=== PATIENT | female | born 1995 | race Caucasian/White ===

== ENCOUNTER 2016-09-03 09:00 | Outpatient (RCR) | payer OTHER, SELFPAY ==
--- NOTE | 2016-09-03 12:38 | BH.SGPN_ITS ---
Service Group Progress Note - Session Psychotherapy Session #1 Date Open:: 09/03/16 Time Started:: 09:10 Time Stopped:: 10:10 Targeted Problem #:: 1 Type of Group:: Process - 7 Participants Goal of Group:: The goal of today's group was to check-in with client's mood, stressors, and positives, review homework, and to introduce the topic of the day. Client Response/Progress/Benefit:: Client entered session alert and attentive. Client was quiet throughout group but continued to actively listen to peers. Client stated she, ?hermitted Saturday and Saturday, but I wanted to be a functioning adult on Saturday and went out.? Client spoke about how her original plans fell through but didn?t get discouraged and continued on with other plans. Client reported feeling, ?tired,? but benefitted from group by venting frustrations. Progress noted in client?s ability to not get discouraged and limit isolation. Continued treatment necessary to decrease depressive symptoms and reduce isolation. Eye Contact:: Fair Motor Activity:: Appropriate Appearance:: Casual Speech:: Appropriate Mood:: Euthymic Affect:: Full Thoughts:: Linear, Logical, No evidence of hallucinations/delusions noted Staff Interventions:: Therapist used open-ended questions to elicit information about client's current stressors and mood. Therapist was supportive by using active listening and reflection. Therapist utilized a quote as an aid in introducing the topic of the day.
--- NOTE | 2016-09-03 15:40 | BH.SGPN ---
Service Group Progress Note - Session Psychotherapy Session #2 Date Open:: 09/03/16 Time Started:: 10:20 Time Stopped:: 11:10 Targeted Problem #:: 1 Type of Group:: Illness Management Goal of Group:: To increase understanding of communication and the various types of communication. Another goal was to identify the costs and benefits of each style of communication. Client Response/Progress/Benefit:: Client responded well to session as shown by her contributing her thoughts and ideas to discussion and connecting with others. Client connected with several of the different communication styles, able to identify both positives and negatives of the styles. Client seemed to benefit from increasing awareness of the different styles of communication and how each style can impact relatinshiops and mental health. Eye Contact:: Good Motor Activity:: Appropriate Appearance:: Casual Speech:: Appropriate Mood:: Anxious Affect:: Congruent Thoughts:: Linear, Logical, No evidence of hallucinations/delusions noted Staff Interventions:: Therapist facilitated the group discussion about communication and explained the different types of communication. Therapist assisted group members in identifying the impact the communication style has on their relationships. Therapist provided support by using active listening and providing feedback. Psychotherapy Session #3 Date Open:: 09/03/16 Time Started:: 11:30 Time Stopped:: 12:15 Targeted Problem #:: 1 Type of Group:: Functional Skills Development Goal of Group:: To identify increase understanding of impact of own communication style can have on relationships and mental health. Another goal was to identify strategies to improve communication. Client Response/Progress/Benefit:: Client attentive, active participant, positive contributions. Client identifed she will attempt to be assertive, but often gets passive aggressive when she believes the other person is not listening or understanding what she is attempting to communicate. Client reported when she gets passive aggressive it doesn't often help the situation, sometimes results in her isolating, increasing depressive symptoms. She seemed to benefit from increased awareness of impact personal style of communication has on her as well as group brainstorming strategies to help increase effective communication. Eye Contact:: Good Motor Activity:: Appropriate Appearance:: Casual Speech:: Appropriate Mood:: Anxious Affect:: Congruent Thoughts:: Linear, Logical, No evidence of hallucinations/delusions noted Staff Interventions:: Therapist elicited which communication style each group member most often uses and how that communication style impacts their relationships and mental health. Therapist brainstormed with group members to identify strategies that can help improve personal communication. Therapist provided support by using active listening and feedback.
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
--- NOTE | 2016-09-05 11:51 | BH.SGPN ---
Service Group Progress Note - Session Psychotherapy Session #1 Date Open:: 09/05/16 Time Started:: 09:00 Time Stopped:: 10:00 Type of Group:: Process - 8 group members Goal of Group:: The goal of today's group was to check-in with clients, review homework from previous group session and introduce todays topic. Client Response/Progress/Benefit:: Attentive. Provided feedback when prompted however was superficial. Emotion for today was tired. Reports poor sleep. Distant and depressed. Briefly discussed stressors however smiled and stated something like this is just my life while smiling. Often smiles when significantly depressed or overwhelmed. Attempted to elicit more information however pt appeared irritable. Limited progress noted. Depression and irritable and not utilizing group to process emotions. Continues to isolate at home often sleeping when not in IOP. Continued treatment to maintain safety, improve functioning to return to work, and prevent decompensation. Eye Contact:: Fair Motor Activity:: Restless Appearance:: Casual Speech:: Pressured Mood:: Anxious, Irritable, Depressed Affect:: Congruent Thoughts:: Linear, Logical, No evidence of hallucinations/delusions noted Staff Interventions:: Therapist inquired about each group members previous night and current mood state. Therapist reviewed the group members homework from previous group session with the group, asking open ended questions to get more information.
--- NOTE | 2016-09-05 15:06 | BH.MDN_ITS ---
Multi-Disciplinary Note - Note 45-min Individual Time Started:: 12:15 Date: 09/05/16 Purpose of session/treatment goals addressed:: Review progress in [facility] and in regards to treatment plan goals. Reviewed treatment goals 1 and 2. Dicussed discharge from [facility] level of care and step-down to [facility] level of care. Eye Contact:: Good Motor Activity:: Appropriate Appearance:: Casual Speech:: Appropriate Mood:: Euthymic Affect:: Full Thoughts:: Linear, Logical, No evidence of hallucinations/delusions noted Staff Interventions:: Reviewed each treatment goal with pt to gauge her progress. Faciliated a dsicussion on progress in [facility] and recommendations for step-down to [facility] Client Response:: Pt reviewed her crisis plan with therapist. Worked with therapist to complete certain sections. Showed insight into how to use a safety plan as well as when to reach out to crisis and ER if unable to manage symptoms by herself. Identified several warning signs to depression and anxiety as well as negative self-talk statements. Pt was optimistic and motivated today. She reports that she is going to buy a journal this afternoon with plan to record her thoughts and emotions daily in an effort to increase her awareness of cognitive distortions and improve her thought changing skills. Discussed some coping skills that have been most helpful for her which include breathing skills , thought stopping, reframing, using support, and external distractions. She reports that she is less depressed and anxious since starting [facility] Reports that SI has decreased and she feels confident in her ability to maintain her safety. Continues to isolate and ruminate. Agreeable to step down to [facility] as she has met all treamtent plan goals. Risks/Concerns:: No conerns noted. Denies active SI,PLAN, OR INTENT. Contracts for safety. Future-oriented. Progress Toward Goals/Plan:: Completed treatment plan goals. Completed and reviewed crisis and safety plan with therapist today. Pt was able to identify several negative self-talk statements (I'm a failure, I'm doomed to feel depressed all the time) as well as ways to replace negative thoughts with more realistic thoughts. Was able to identify mistaken beliefs and cognitive distortions (all or nothing thinking, Should/must statements). Was able to give example of ways to reframe negative thoughts. Is going to start a journal which involves her thought patterns. Also was able to identify warning signs and strategies to mange her anxiety. Progress noted as she reports decreased suicidal ideations. Reports that SI can occur however decreased intensity and frequency. Feels that she is able to manage these thoughts currently. More optimistic. No reported panic attack since last week. Continues to ruminate and isolate at times due to depression. At this point she will be discharged from [facility] level of care. Plan is to start IOP on 09/07/16 Time Stopped:: 13:00
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
--- NOTE | 2016-09-05 17:59 | BH.SGPN ---
Service Group Progress Note - Session Psychotherapy Session #2 Date Open:: 09/05/16 Time Started:: 10:10 Time Stopped:: 11:03 Targeted Problem #:: 1 Type of Group:: Illness Management - 8 participants. Goal of Group:: To increase understanding of cognitive distortions, identify examples of when have had unhelpful thinking, and increase awareness of the impact cognitive distortions have on mental health. Client Response/Progress/Benefit:: Client was a positive participant and well engaged throughout. She did well to openly express thoughts and opinions, as well as challenge various items she did not connect with. Client reflected upon the day's quote, indicating that her experiences with anxiety have caused her mind to invent, create, experience, or distroy things based upon her ruminating thoughts alone. She did well to actively provide feedback during the discussion on cognitive distortions and often challenged some of these definitions. Client identified that she often falls into assuming, disqualifying the positive, or catastrophising which tends to increase symptoms of anxiety and depression. During the exercise portion, Client worked well within the small group setting to creat a barrier for the egg, representing the way distorted thoughts protect and precipitate negative emotions. Client appeared to benefit from engaging in discussion and reflecting upon the definitions for each cognitive distortion. Eye Contact:: Good Motor Activity:: Appropriate Appearance:: Casual Speech:: Appropriate Mood:: Euthymic Affect:: Congruent Thoughts:: Linear, Logical, No evidence of hallucinations/delusions noted Staff Interventions:: Therapist utilized a quote as a tool to introduce topic of the day. Therapist provided group members with a handout that listed ten cognitive distortions with examples. Therapist facilitated group discussion about cognitive distortions. Therapist led group members in an activity to help them understand the impact cognitive distortions can have on emotions and behavior. Therapist provided support by using active listening and providing feedback. Psychotherapy Session #3 Date Open:: 09/05/16 Time Started:: 11:08 Time Stopped:: 11:58 Targeted Problem #:: 1 Type of Group:: Functional Skills Development - 8 participants. Goal of Group:: To identify ways of defeating cognitive distortions and rehearse defeating the identified cognitive distortion. Client Response/Progress/Benefit:: Client again did well to actively participate and engage in the group session. She was able to connect a drop activity with the importance of not only having awareness of one's cognitive distortions but also actively putting effort into challenging negative thought patterns. Client indicated skepticism in her ability to challenge negative thoughts and stated that often her anxiety and depression gets in the way of her ability to do so. She stated that she wishes she were able to increase capabilities of challenging negative thought patterns. Client additionally was able to work collaboratively in the small group setting to identify various cognitive distortions used in example scenarios provided, as well as corresponding emotions and positive alternative responses. She indicated believing that she will struggle with challanging her own negative thoughts and appeared to benefit from using the example scenarios as a means for practicing replacing distorted thinking with positive alternatives. Eye Contact:: Good Motor Activity:: Appropriate Appearance:: Casual Speech:: Appropriate Mood:: Euthymic Affect:: Congruent Thoughts:: Linear, Logical, No evidence of hallucinations/delusions noted
--- NOTE | 2016-09-06 11:51 | BH.SGPN_ITS ---
Service Group Progress Note - Session Psychotherapy Session #1 Date Open:: 09/05/16 Time Started:: 09:00 Time Stopped:: 10:00 Type of Group:: Process - 8 group members Goal of Group:: The goal of today's group was to check-in with clients, review homework from previous group session and introduce today?s topic. Client Response/Progress/Benefit:: Attentive. Provided feedback when prompted however was superficial. Emotion for today was ?tired?. Reports poor sleep. Distant and depressed. Briefly discussed stressors however smiled and stated something like ?this is just my life? while smiling. Often smiles when significantly depressed or overwhelmed. Attempted to elicit more information however pt appeared irritable. Limited progress noted. Depression and irritable and not utilizing group to process emotions. Continues to isolate at home often sleeping when not in IOP. Continued treatment to maintain safety, improve functioning to return to work, and prevent decompensation. Eye Contact:: Fair Motor Activity:: Restless Appearance:: Casual Speech:: Pressured Mood:: Anxious, Irritable, Depressed Affect:: Congruent Thoughts:: Linear, Logical, No evidence of hallucinations/delusions noted Staff Interventions:: Therapist inquired about each group member?s previous night and current mood state. Therapist reviewed the group member?s homework from previous group session with the group, asking open ended questions to get more information.
== END 2016-09-05 14:00 | disposition home or self-care (01) ==
LOC: BHPHP 09:00
PROVIDERS: Family Provider Family Medicine; PCP Family Medicine; Visit Provider Psychiatry & Neurology Psychiatry
DX: F33.2 Major depressive disorder, recurrent severe without psychotic features (principal); F41.9 Anxiety disorder, unspecified; F43.10 Post-traumatic stress disorder, unspecified; R45.851 Suicidal ideations
CPT/HCPCS: H0035; 90834; G0410